=== PATIENT | male | born 2000 | race Caucasian/White ===

== ENCOUNTER 2020-06-06 03:54 | Emergency (ER) | payer BC, OTHER ==
[~2020-06-06] VITALS: Ht 175 cm; Wt 73.0 kg
[~2020-06-06 03:54] MED LIST: MONT5TAB11 PO
[2020-06-06] MEDS ORDERED: NS IV 1000 ML 1,000 ML IV SCH (04:15)
--- NOTE | 2020-06-06 04:19 | ED Psychosocial ---
General Chief Complaint: Substance Abuse Stated Complaint: INTOXICATION / CONFUSION Nursing Triage Note: brought in by family with altered mental status, aggression, etoh ingestion. Source: family Exam Limitations: intoxication (JOANN PEACOCK MD) History of Present Illness Date Seen by Provider: Jun 06, 2020 Time Seen by Provider: 04:00 Initial Comments Patient is a 19-year-old male who presents to the emergency department today with a chief complaint of altered mental status. He arrives by private vehicle. Mom reports the story is that he went to a [place] this evening and was drinking lots of alcohol. Friends called Johnny's girlfriend around 1 or 1:30 am who then contacted his mom. He was taken home and was watched for about an hour, mom became concerned because he did not seem to be "coming around". Reportedly he was quite combative at home. He has a history of type 1 diabetes. He wears an insulin pump. On arrival to the emergency department his pump is reading his blood sugar is 77. No reported traumas, mom states that it was reported to her that hemight have fallen but he did not hit his head. He has no other significant past medical history. For me he is not verbal. He responds to noxious stimuli. He does seem to be able to answer his mother a little bit with head nods. Review of systems limited secondary to the patient's intoxicated state. Timing/Duration: this evening Severity: severe Associated Symptoms: ingestion (JOANN PEACOCK MD) Allergies and Home Medications Allergies Coded Allergies: azithromycin (Verified Allergy, Unknown, 06/06/20) Home Medications Montelukast Sodium 5 Mg Tab.chew, 5 MG PO DAILY, (Reported) Patient Home Medication List Home Medication List Reviewed: Yes (JOANN PEACOCK MD) Review of Systems ROS-Unable to Obtain: patient highly intoxicated Constitutional: see HPI (JOANN PEACOCK MD) Past Wajkyzi-Jhnzjq-Xvjwzi Hx Patient Social History Alcohol Use: Occasionally Uses Smoking Status: Unknown if Ever Smoked 2nd Hand Smoke Exposure: No Recent Infectious Disease Expo: No Recent Hopitalizations: No (JOANN PEACOCK MD) Immunizations Up To Date Tetanus Booster (TDap): Less than 5yrs Date of Influenza Vaccine: Feb 15, 2012 (JOANN PEACOCK MD) Seasonal Allergies Seasonal Allergies: No (JOANN PEACOCK MD) Past Medical History Surgeries: No Respiratory: Yes Asthma Cardiac: No Neurological: No Reproductive Disorders: No Sexually Transmitted Disease: No HIV/AIDS: No Genitourinary: No Gastrointestinal: No Musculoskeletal: No Endocrine: Yes Diabetes, Insulin dep HEENT: No Cancer: No Psychosocial: No Integumentary: No Blood Disorders: No Adverse Reaction/Blood Tranf: No (JOANN PEACOCK MD) Family Medical History No Pertinent Family Hx (JOANN PEACOCK MD) Physical Exam Vital Signs - First Documented 06/06/20 03:55 Temp 36.5 Pulse 71 Resp 18 B/P (MAP) 99/63 (75) Pulse Ox 97 O2 Delivery Room Air (JUSTYNA BEAN MD) Capillary Refill : Less Than 3 Seconds (JOANN PEACOCK MD) Height, Weight, BMI Height: '" Weight: 88lbs. oz. 39.056657cx; 23.00 BMI Method:Stated General Appearance: WD/WN, no apparent distress HEENT: PERRL/EOMI (PERRL - ) Neck: other (Cervical collar placed on arrival) Respiratory: lungs clear, normal breath sounds, no respiratory distress, no accessory muscle use Cardiovascular: regular rate, rhythm, no murmur Gastrointestinal: soft Extremities: normal range of motion, normal inspection, no pedal edema, normal capillary refill Neurologic/Psychiatric: disoriented x 3 Behavior/Eye Contact: uncooperative Thoughts/Hallucinations: incoherent Skin: normal color, warm/dry (JOANN PEACOCK MD) Progress/Results/Core Measures Results/Orders Lab Results Laboratory Tests Test 06/06/20 03:59 06/06/20 04:13 Range/Units Glucometer 77 70-110 MG/DL White Blood Count 5.6 4.3-11.0 10^3/uL Red Blood Count 5.33 4.30-5.52 10^6/uL Hemoglobin 16.0 13.3-17.7 g/dL Hematocrit 44 40-54 % Mean Corpuscular Volume 83 80-99 fL Mean Corpuscular Hemoglobin 30 25-34 pg Mean Corpuscular Hemoglobin Concent 36 32-36 g/dL Red Cell Distribution Width 11.7 10.0-14.5 % Platelet Count 335 130-400 10^3/uL Mean Platelet Volume 10.2 9.0-12.2 fL Immature Granulocyte % (Auto) 0 % Neutrophils (%) (Auto) 46 42-75 % Lymphocytes (%) (Auto) 46 H 12-44 % Monocytes (%) (Auto) 6 0-12 % Eosinophils (%) (Auto) 0 0-10 % Basophils (%) (Auto) 1 0-10 % Neutrophils # (Auto) 2.6 1.8-7.8 10^3/uL Lymphocytes # (Auto) 2.6 1.0-4.0 10^3/uL Monocytes # (Auto) 0.3 0.0-1.0 10^3/uL Eosinophils # (Auto) 0.0 0.0-0.3 10^3/uL Basophils # (Auto) 0.1 0.0-0.1 10^3/uL Immature Granulocyte # (Auto) 0.0 0.0-0.1 10^3/uL Sodium Level 143 135-145 MMOL/L Potassium Level 4.0 3.6-5.0 MMOL/L Chloride Level 107 98-107 MMOL/L Carbon Dioxide Level 23 21-32 MMOL/L Anion Gap 13 5-14 MMOL/L Blood Urea Nitrogen 7 7-18 MG/DL Creatinine 0.80 0.60-1.30 MG/DL Estimat Glomerular Filtration Rate > 60 BUN/Creatinine Ratio 9 Glucose Level 104 70-105 MG/DL Calcium Level 8.8 8.5-10.1 MG/DL Urine Opiates Screen NEGATIVE NEGATIVE Urine Oxycodone Screen NEGATIVE NEGATIVE Urine Methadone Screen NEGATIVE NEGATIVE Urine Propoxyphene Screen NEGATIVE NEGATIVE Urine Barbiturates Screen NEGATIVE NEGATIVE Ur Tricyclic Antidepressants Screen NEGATIVE NEGATIVE Urine Phencyclidine Screen NEGATIVE NEGATIVE Urine Amphetamines Screen NEGATIVE NEGATIVE Urine Methamphetamines Screen NEGATIVE NEGATIVE Urine Benzodiazepines Screen NEGATIVE NEGATIVE Urine Cocaine Screen NEGATIVE NEGATIVE Urine Cannabinoids Screen NEGATIVE NEGATIVE Serum Alcohol 233 H <10 MG/DL (JUSTYNA BEAN MD) My Orders Orders - JUSTYNA BEAN MD Insulin (Regular) Human (Novolin R (Per (06/06/20 06:56) (JUSTYNA BEAN MD) Vital Signs/I&O 06/06/20 03:55 Temp 36.5 Pulse 71 Resp 18 B/P (MAP) 99/63 (75) Pulse Ox 97 O2 Delivery Room Air (JUSTYNA BEAN MD) Blood Pressure Mean: 75 Progress Progress Note : Time: 05:38 Progress Note rechecked patient, resting/sleeping soundly. Blood sugar on his insulin pump reads 143. Discussed plan of care with mom. Will let him sleep another hour or so and recheck him at 0630 and try and wake him and re-evaluate. Anticipate him sobering up and then will remove the cervical collar. Mom is agreeable to wait. Care passed to Dr Bean at shift change (JOANN PEACOCK MD) Progress Note : Progress Note 0650: Patient still resting peacefully without distress. Mother at bedside. CT is negative. Patient remains in c-collar. Patient does have insulin pump on that is out of insulin and it does show increasing blood sugar in the range of 270 currently. We will give 2 units of insulin IV as he has no basal rate going currently. He is still not waking up well. He is moving extremities and mother states that he is starting to come around. We will continue to watch him. 0750: Patient is waking up better now and did open his eyes and answer simple questions for me. Mother is a nurse and she is comfortable taking him home. Blood sugar now at about 200 and she will continue to monitor his blood sugars at home. She feels comfortable taking him home and has my phone number if needed. C-collar removed and patient has full range of motion without pain. Discharged home with return precautions. Patient mother verbalized understanding of instructions and agreement with plan. (JUSTYNA BEAN MD) Diagnostic Imaging Diagonstic Imaging: CT Plain Films/CT/US/NM/MRI: c-spine, head Comments STATRAD non contrast brain CT shows no acute intracranial abnormality; Cervical spine shows no acute osseous traumatic injury (JOANN PEACOCK MD) Comments [facility] [place], [place] NAME: JOHNNY SMYTH Reina MED REC#: [id number] PT STATUS: REG ER : 2000 PHYSICIAN: JOANN PEACOCK MD ADMIT DATE: 06/06/20/ER Draft Date of Exam:06/06/20 CT HEAD/CERVICAL SPINE WO PROCEDURE: CT head and CT cervical spine without contrast. TECHNIQUE: Multiple contiguous axial images were obtained through the brain and cervical spine without the use of intravenous contrast. Sagittal and coronal reformations through the cervical spine were then performed. Auto Exposure Controls were utilized during the CT exam to meet ALARA standards for radiation dose reduction. DATE: June 06, 2020. COMPARISON: CT head and cervical spine May 18, 2012. INDICATION: 19-year-old male, altered mental status. Head and neck pain. FINDINGS: The ventricles and cerebral spinal fluid spaces are of normal size and configuration for the patient's age. There is no mass effect or midline shift. There is no acute intracranial hemorrhage. There is no abnormal extra-axial fluid collection. The visualized portions of the paranasal sinuses, mastoid air cells and middle ears are well aerated. There is no identified facet joint subluxation or dislocation. There is no asymmetric widening of the cervical disc spaces. There is no identified acute fracture of the cervical spine. The cervical disc heights are well preserved. The facet joints are unremarkable. CT is limited for assessment of disc pathology as well as additional nonbony causes of pathology in the spinal canal. The visualized portions of the lung apices are clear. IMPRESSION: 1. No identified acute intracranial abnormality. 2. No identified acute abnormality of the cervical spine. Dictated on workstation # [id number] Dict: 06/06/20620 Trans: 06/06/2035 [facility] [id number] Interpreted by: KRISTI LOPEZ MD Electronically signed by: (JUSTYNA BEAN MD) Departure Impression Primary Impression: Acute alcoholic intoxication Qualified Codes: F10.929 - Alcohol use, unspecified with intoxication, unspecified Disposition: 01 HOME, SELF-CARE Condition: Stable Departure-Patient Inst. Referrals: SHARLENE GAITAN MD (PCP) Primary Care Physician Patient Instructions: ALCOHOL AND SUBSTANCE ABUSE, Alcohol Intoxication ED Add. Discharge Instructions: All discharge instructions reviewed with patient and/or family. Voiced understanding. You should avoid alcohol especially as a diabetic. Resume normal diet as tolerated. Carefully monitor your blood sugar and treat or adjust as needed per your home protocol. Return for worse pain, fever, vomiting, weakness, breathing problems or other concerns as needed. JOANN PEACOCK MD Jun 06, 2020 04:19 JUSTYNA BEAN MD Jun 06, 2020 07:57
[2020-06-06 04:20] LABS: BASOPHILS # (AUTO) 0.1 10^3/uL (0.0-0.1); BASOPHILS % (AUTO) 1 % (0-10); EOSINOPHILS % (AUTO) 0 % (0-10); HEMATOCRIT 44 % (40-54); LYMPHOCYTES # (AUTO) 2.6 10^3/uL (1.0-4.0); LYMPHOCYTES % (AUTO) 46 % (12-44); MEAN CORPUSCULAR HEMOGLOBIN 30 pg (25-34); MEAN CORPUSCULAR HGB CONC 36 g/dL (32-36); MEAN CORPUSCULAR VOLUME 83 fL (80-99); MEAN PLATELET VOLUME 10.2 fL (9.0-12.2); MONOCYTES # (AUTO) 0.3 10^3/uL (0.0-1.0); MONOCYTES % (AUTO) 6 % (0-12); NEUTROPHILS # (AUTO) 2.6 10^3/uL (1.8-7.8); NEUTROPHILS % (AUTO) 46 % (42-75); PLATELET COUNT 335 10^3/uL (130-400); WHITE BLOOD COUNT 5.6 10^3/uL (4.3-11.0)
[2020-06-06 04:29] LABS: CHLORIDE 107 MMOL/L (98-107); SODIUM 143 MMOL/L (135-145)
[2020-06-06 04:31] LABS: CALCIUM 8.8 MG/DL (8.5-10.1); GLUCOSE 104 MG/DL (70-105)
[2020-06-06 04:32] LABS: CARBON DIOXIDE 23 MMOL/L (21-32)
[2020-06-06 04:35] LABS: GFR ESTIMATED > 60
[2020-06-06 04:36] LABS: AMPHETAMINE SCREEN, URINE NEGATIVE (NEGATIVE); BARBITURATE SCREEN URINE NEGATIVE (NEGATIVE); BENZODIAZEPINES SCREEN URINE NEGATIVE (NEGATIVE); BUN/CREATININE RATIO 9; CANNABINOID SCREEN, URINE NEGATIVE (NEGATIVE); COCAINE SCREEN URINE NEGATIVE (NEGATIVE); METHADONE STAT NEGATIVE (NEGATIVE); METHAMPHETAMINE SCREEN URINE S NEGATIVE (NEGATIVE); OPIATE SCREEN URINE NEGATIVE (NEGATIVE); OXYCODONE STAT NEGATIVE (NEGATIVE); PROPOXYPHENE STAT NEGATIVE (NEGATIVE); TRICYCLIC ANTIDEPRESSANTS SCRE NEGATIVE (NEGATIVE)
--- NOTE | 2020-06-06 06:37 | Diagnostic Imaging Report ---
PROCEDURE: CT head and CT cervical spine without contrast. TECHNIQUE: Multiple contiguous axial images were obtained through the brain and cervical spine without the use of intravenous contrast. Sagittal and coronal reformations through the cervical spine were then performed. Auto Exposure Controls were utilized during the CT exam to meet ALARA standards for radiation dose reduction. DATE: June 06, 2020. COMPARISON: CT head and cervical spine May 18, 2012. INDICATION: 19-year-old male, altered mental status. Head and neck pain. FINDINGS: The ventricles and cerebral spinal fluid spaces are of normal size and configuration for the patient's age. There is no mass effect or midline shift. There is no acute intracranial hemorrhage. There is no abnormal extra-axial fluid collection. The visualized portions of the paranasal sinuses, mastoid air cells and middle ears are well aerated. There is no identified facet joint subluxation or dislocation. There is no asymmetric widening of the cervical disc spaces. There is no identified acute fracture of the cervical spine. The cervical disc heights are well preserved. The facet joints are unremarkable. CT is limited for assessment of disc pathology as well as additional nonbony causes of pathology in the spinal canal. The visualized portions of the lung apices are clear. IMPRESSION: 1. No identified acute intracranial abnormality. 2. No identified acute abnormality of the cervical spine. Dictated by: Dictated on workstation # [id number]
[2020-06-06] MEDS ORDERED: inSUlin (REGULAR) HUMAN 1 UNIT/0.01 ML (CHARGE PER UNIT) IV STA (06:56)
[2020-06-06 08:07] VITALS: BP 97/68
== END 2020-06-06 08:07 | disposition home or self-care (01) ==
LOC: EDUNIT# 03:54 → ER 03:56
DX: F10.129 Alcohol abuse with intoxication, unspecified (principal); J45.909 Unspecified asthma, uncomplicated; Z88.1 Allergy status to other antibiotic agents
CPT/HCPCS: 70450; 72125; 80048; 80306; 82962; 85025; G0480; 36415; 80320

== ENCOUNTER 2021-04-15 23:12 | Inpatient (IN) | payer OTHER, BC ==
[~2021-04-15] VITALS: Ht 172.7 cm; Wt 63.5 kg
[2021-04-15] MEDS ORDERED: LACTATED RINGERS 1,000 ML IV STA (23:26)
[2021-04-15] MEDS ORDERED: ONDANSETRON 4 MG/2 ML (SDV) Z0FRAN IVP ONE (23:30)
[2021-04-15 23:45] LABS: BASOPHILS # (AUTO) 0.1 10^3/uL (0.0-0.1); BASOPHILS % (AUTO) 0 % (0-10); EOSINOPHILS % (AUTO) 0 % (0-10); HEMATOCRIT 44 % (40-54); LYMPHOCYTES # (AUTO) 2.4 10^3/uL (1.0-4.0); LYMPHOCYTES % (AUTO) 21 % (12-44); MEAN CORPUSCULAR HEMOGLOBIN 30 pg (25-34); MEAN CORPUSCULAR HGB CONC 36 g/dL (32-36); MEAN CORPUSCULAR VOLUME 84 fL (80-99); MEAN PLATELET VOLUME 10.5 fL (9.0-12.2); MONOCYTES # (AUTO) 0.8 10^3/uL (0.0-1.0); MONOCYTES % (AUTO) 7 % (0-12); NEUTROPHILS # (AUTO) 8.3 10^3/uL (1.8-7.8); NEUTROPHILS % (AUTO) 71 % (42-75); PLATELET COUNT 317 10^3/uL (130-400); WHITE BLOOD COUNT 11.6 10^3/uL (4.3-11.0)
[2021-04-15 23:46] LABS: BILIRUBIN,URINE NEGATIVE (NEGATIVE); CLARITY,URINE CLEAR; COLOR,URINE YELLOW; GLUCOSE, URINE (UA) NEGATIVE (NEGATIVE); KETONES,URINE NEGATIVE (NEGATIVE); LEUKOCYTE ESTERASE ,URINE NEGATIVE (NEGATIVE); NITRITE,URINE NEGATIVE (NEGATIVE); PROTEIN,URINE NEGATIVE (NEGATIVE)
[2021-04-15 23:53] LABS: BACTERIA,URINE NEGATIVE /HPF
[2021-04-15 23:57] LABS: ALBUMIN 4.7 GM/DL (3.2-4.5); CHLORIDE 100 MMOL/L (98-107); POTASSIUM 3.7 MMOL/L (3.6-5.0); SODIUM 140 MMOL/L (135-145)
[2021-04-15 23:59] LABS: CALCIUM 9.7 MG/DL (8.5-10.1)
[2021-04-16] VITALS (9 sets, daily range): BP systolic 109–121; BP diastolic 56–83
[2021-04-16] LABS: GLUCOSE 105 MG/DL (70-105); TOTAL PROTEIN 7.8 GM/DL (6.4-8.2)
[2021-04-16 00:01] LABS: CARBON DIOXIDE 27 MMOL/L (21-32)
[2021-04-16 00:02] LABS: BILIRUBIN,TOTAL 0.6 MG/DL (0.1-1.0)
[2021-04-16 00:03] LABS: ALKALINE PHOSPHATASE 68 U/L (40-136); PHOSPHORUS 2.2 MG/DL (2.3-4.7)
[2021-04-16 00:04] LABS: CREATININE SERUM 0.86 MG/DL (0.60-1.30); GFR ESTIMATED 112
[2021-04-16 00:05] LABS: BUN/CREATININE RATIO 8
[2021-04-16] MEDS ORDERED: fentaNYL INJ 100 MCG/2 ML AMP IVP STA (00:05)
[2021-04-16] MEDS ORDERED: KETOROLAC 30 MG/ML VIAL IVP STA (00:05)
[2021-04-16 00:07] LABS: ALANINE AMINOTRANSFERASE 14 U/L (0-55); MAGNESIUM 1.7 MG/DL (1.6-2.4)
--- NOTE | 2021-04-16 00:11 | ED Abdominal Pain ---
General Chief Complaint: COVID19 Suspect/Confirmed Stated Complaint: VOMITING,ABD PAIN,POSS FEVER,COVID + Source of Information: Patient Exam Limitations: No Limitations History of Present Illness Date Seen by Provider: Apr 15, 2021 Time Seen by Provider: 23:32 Initial Comments Here with report of right lower quadrant abdominal pain that started about 6 PM after eating a hamburger. He had vomiting after that and then a few hours later the pain became worse to the right lower quadrant. Current illness is complicated by being Covid positive. He has 2 more days in isolation. Illness started last week with positive test from [facility] 3 days ago. Does have type 1 diabetes for 10 years but states his blood sugars have been good and he has been able to manage that well throughout the illness. Blood sugar low 100s currently on his pump/meter. Denies blood in his urine or stool. Denies difficulty with urination. Has not had anything for pain. States pain was worse on the car ride here over any bumps and also worse with walking. Timing/Duration: 4-6 Hours Severity/Quality: Moderate, Severe Location: RLQ Radiation: No Radiation Activities at Onset: None Modifying Factors: Worsens With Eating, Worsens With Movement, Worsens With Palpation Associated Symptoms: No Back Pain, No Chest Pain; Fever/Chills, Nause a/Vomiting; No Shortness of Air, No Swelling/Mass in Abdomen, No Weakness Allergies and Home Medications Allergies Coded Allergies: azithromycin (Verified Allergy, Unknown, 06/06/20) Patient Home Medication List Home Medication List Reviewed: Yes Montelukast Sodium (Singulair) 5 Mg Tab.chew, 5 MG PO DAILY, (Reported) Entered as Reported by: MEETA MOHAMUD on 12/07/09 1873 Review of Systems Review of Systems Constitutional: see HPI; No chills; fever EENTM: Nose Congestion; No Throat Pain Respiratory: Denies Cough, Denies Shortness of Air Cardiovascular: Denies Chest Pain, Denies Edema Gastrointestinal: Abdominal Pain; Denies Diarrhea; Nausea, Vomiting Genitourinary: No Symptoms Reported Musculoskeletal: no symptoms reported Skin: no symptoms reported All Other Systems Reviewed Negative Unless Noted: Yes Past Arbzkyl-Oyigkq-Pkzawp Hx Patient Social History Tobacco Use?: Yes Smoking Status: Current Everyday Smoker Use of E-Cig and/or Vaping dev: Yes E-Cig or Vaping type used: Nicotine Substance use?: No Alcohol Use?: Yes Alcohol Frequency: Once in a while Immunizations Up To Date Tetanus Booster (TDap): Less than 5yrs Seasonal Allergies Seasonal Allergies: No Past Medical History Surgery/Hospitalization HX: TYPE 1 DM Surgeries: No Respiratory: Yes Asthma Cardiac: No Neurological: No Reproductive Disorders: No Sexually Transmitted Disease: No HIV/AIDS: No Genitourinary: No Gastrointestinal: No Musculoskeletal: No Endocrine: Yes Diabetes, Insulin dep HEENT: No Cancer: No Psychosocial: No Integumentary: No Blood Disorders: No Adverse Reaction/Blood Tranf: No Family Medical History Reviewed Nursing Family Hx No Pertinent Family Hx Physical Exam Vital Signs Vital Signs - First Documented 04/15/21 23:21 Temp 37.5 Pulse 80 Resp 16 B/P (MAP) 140/85 (103) Pulse Ox 100 O2 Delivery Room Air Capillary Refill : Height/Weight/BMI Height: '" Weight: 88lbs. oz. 39.175891lj; 23.00 BMI Method:Stated General Appearance: WD/WN, no apparent distress Neck: full range of motion, supple Respiratory: lungs clear, normal breath sounds Cardiovascular: regular rate, rhythm, no murmur Gastrointestinal: soft, guarding; No rebound; tenderness (Right lower quadrant) Extremities: non-tender, normal inspection Back: normal inspection, no CVA tenderness, no vertebral tenderness Neurologic/Psychiatric: alert, oriented x 3 Skin: normal color, warm/dry Progress/Results/Core Measures Results/Orders Lab Results Laboratory Tests Test 04/15/21 23:30 Range/Units White Blood Count 11.6 H 4.3-11.0 10^3/uL Red Blood Count 5.27 4.30-5.52 10^6/uL Hemoglobin 16.0 13.3-17.7 g/dL Hematocrit 44 40-54 % Mean Corpuscular Volume 84 80-99 fL Mean Corpuscular Hemoglobin 30 25-34 pg Mean Corpuscular Hemoglobin Concent 36 32-36 g/dL Red Cell Distribution Width 11.7 10.0-14.5 % Platelet Count 317 130-400 10^3/uL Mean Platelet Volume 10.5 9.0-12.2 fL Immature Granulocyte % (Auto) 0 % Neutrophils (%) (Auto) 71 42-75 % Lymphocytes (%) (Auto) 21 12-44 % Monocytes (%) (Auto) 7 0-12 % Eosinophils (%) (Auto) 0 0-10 % Basophils (%) (Auto) 0 0-10 % Neutrophils # (Auto) 8.3 H 1.8-7.8 10^3/uL Lymphocytes # (Auto) 2.4 1.0-4.0 10^3/uL Monocytes # (Auto) 0.8 0.0-1.0 10^3/uL Eosinophils # (Auto) 0.0 0.0-0.3 10^3/uL Basophils # (Auto) 0.1 0.0-0.1 10^3/uL Immature Granulocyte # (Auto) 0.0 0.0-0.1 10^3/uL Urine Color YELLOW Urine Clarity CLEAR Urine pH 8.0 5-9 Urine Specific [place] 1.015 L 1.016-1.022 Urine Protein NEGATIVE NEGATIVE Urine Glucose (UA) NEGATIVE NEGATIVE Urine Ketones NEGATIVE NEGATIVE Urine Nitrite NEGATIVE NEGATIVE Urine Bilirubin NEGATIVE NEGATIVE Urine Urobilinogen 0.2 < = 1.0 MG/DL Urine Leukocyte Esterase NEGATIVE NEGATIVE Urine RBC (Auto) NEGATIVE NEGATIVE Urine RBC NONE /HPF Urine WBC NONE /HPF Urine Crystals NONE /LPF Urine Bacteria NEGATIVE /HPF Urine Casts NONE /LPF Urine Mucus NEGATIVE /LPF Urine Culture Indicated NO Sodium Level 140 135-145 MMOL/L Potassium Level 3.7 3.6-5.0 MMOL/L Chloride Level 100 98-107 MMOL/L Carbon Dioxide Level 27 21-32 MMOL/L Anion Gap 13 5-14 MMOL/L Blood Urea Nitrogen 7 7-18 MG/DL Creatinine 0.86 0.60-1.30 MG/DL Estimat Glomerular Filtration Rate 112 BUN/Creatinine Ratio 8 Glucose Level 105 70-105 MG/DL Calcium Level 9.7 8.5-10.1 MG/DL Corrected Calcium 8.5-10.1 MG/DL Phosphorus Level 2.2 L 2.3-4.7 MG/DL Magnesium Level 1.7 1.6-2.4 MG/DL Total Bilirubin 0.6 0.1-1.0 MG/DL Aspartate Amino Transf (AST/SGOT) 19 5-34 U/L Alanine Aminotransferase (ALT/SGPT) 14 0-55 U/L Alkaline Phosphatase 68 40-136 U/L C-Reactive Protein High Sensitivity 0.43 0.00-0.50 MG/DL Total Protein 7.8 6.4-8.2 GM/DL Albumin 4.7 H 3.2-4.5 GM/DL My Orders Orders - JUSTYNA BEAN MD Cbc With Automated Diff (04/15/21:) Comprehensive Metabolic Panel (04/15/21:) Hs C Reactive Protein (04/15/21:) Magnesium (04/15/21:) Ua Culture If Indicated (04/15/21) Phosphorus (04/15/21:) Ondansetron Injection (Zofran Injectio (04/15/21 23:30) Lactated Ringers (Lr 1000 Ml Iv Solution (04/15/21:) Ed Iv/Invasive Line Start (04/15/21:) Fentanyl Inj (Sublimaze Injection) (04/16/21 00:05) Ketorolac Injection (Toradol Injection) (04/16/21 00:05) Ct Abd/Pelv W (Appendicitis) (04/16/21 00:12) Medications Given in ED Current Medications Medications Dose Ordered Sig/Dori Route Start Time Stop Time Status Last Admin Dose Admin Ondansetron HCl 4 mg ONCE ONCE IVP 04/15/21 23:30 04/15/21 23:31 DC 04/15/21 23:35 4 MG Vital Signs/I&O 04/15/21:21 Temp 37.5 Pulse 80 Resp 16 B/P (MAP) 140/85 (103) Pulse Ox 100 O2 Delivery Room Air Progress Progress Note : Progress Note Seen and evaluated. IV, labs, UA, LR 1 L bolus, Zofran 4 mg IV. Patient with pain. Fentanyl 25 mcg IV ordered and Toradol 30 mg IV ordered. Last meal was at 6:30 PM last night. Monitor patient. Anticipate CT scan. 0110: CT scan complete the read pending. Clearly shows appendicitis with appendicolith and associated fat stranding. I did discuss the case with Dr. Gauthier. We will give Rocephin 1 g IV now and admit with surgery likely after 10 AM this morning. This was discussed with the patient who agrees. We will let him continue with his insulin pump and he is well managed. He will adjust his basal rate down since he will be n.p.o. He is currently pain-free. Admit observation status. Patient agrees to plan. Diagnostic Imaging Diagonstic Imaging: CT Plain Films/CT/US/NM/MRI: abdomen, pelvis Comments Acute appendicitis Statrad read at 0229 shows acute appendicitis. Reviewed: Reviewed [place] Study, Reviewed by Me Departure Communication (Admissions) Time/Spoke to Admitting Phy: 01:10 Impression Primary Impression: Acute appendicitis Qualified Codes: K35.30 - Acute appendicitis with localized peritonitis, without perforation or gangrene Additional Impression: COVID-19 virus infection Disposition: ADMITTED INPATIENT Condition: Stable Admissions Decision to Admit Reason: Admit from ER (General) Decision to Admit/Date: Apr 16, 2021 Time/Decision to Admit Time: 01:10 Departure-Patient Inst. Referrals: MACKENZIE WEISS MD (PCP/Family) Primary Care Physician JUSTYNA BEAN MD Apr 16, 2021 00:11
[2021-04-16] MEDS ORDERED: cefTRIAXone 1 GM PRE-MIX 50 ML IV STA (01:12)
[2021-04-16] MEDS ORDERED: CATHETER FLUSH 10 ML SYR IV PRN (01:30)
[2021-04-16] MEDS ORDERED: IOHEXOL 350 MG/ML 150 ML (OMNIPAQUE 350) VIAL IV ONE (01:30)
[2021-04-16] MEDS ORDERED: HOLD METFORMIN - RECEIVED CONTRAST 20 ML VIAL IV SCH (01:30)
[2021-04-16] MEDS ORDERED: NS 100 ML (IVPB) BAG IV ONE (01:30)
[2021-04-16] MEDS ORDERED: LACTATED RINGERS 1,000 ML IV ONE (03:26)
[2021-04-16] MEDS ORDERED: ONDANSETRON 4 MG/2 ML (SDV) Z0FRAN IV PRN (03:30)
[2021-04-16] MEDS: LACTATED RINGERS 1,000 ML IV SCH ×2 (03:32→13:23)
--- NOTE | 2021-04-16 04:36 | Diagnostic Imaging Report ---
PROCEDURE: CT abdomen and pelvis with contrast, rule out appendicitis. TECHNIQUE: Multiple contiguous axial images were obtained through the abdomen and pelvis after the administration of intravenous contrast. All CT scans use one or more of the following dose optimizing techniques: automated exposure control, MA and/or KvP adjustment based on patient size and exam type or iterative reconstruction. INDICATION: Right lower quadrant abdominal pain and vomiting. Covid positive. COMPARISON: None FINDINGS: There is minimal atelectasis in the left lung base. The heart is normal in size. The liver demonstrates no focal lesions. The spleen appears normal. The pancreas is normal. The adrenal glands appear normal. There is a small subcentimeter cyst in the superior left kidney. The kidneys are otherwise unremarkable. The bowel loops are nondistended without evidence of obstruction. The appendix is enlarged, measuring 1.3 cm in diameter, with a calcified appendicolith measuring 5 mm. There is surrounding edema and fluid. No free air is seen. No rim-enhancing fluid collection is seen. No acute osseous abnormality is identified. IMPRESSION: 1. Acute appendicitis with appendicolith. There is surrounding fluid and edema, but no abscess or free air is seen. No significant changes from the preliminary report. Dictated by: Dictated on workstation # [id number]
[2021-04-16] MEDS ORDERED: LIDOCAINE/EPI 1%-1:200,000 (XYLOCAINE) 30 ML VIAL ONE (09:26)
[2021-04-16] MEDS ORDERED: ONDANSETRON 4 MG/2 ML (SDV) Z0FRAN ONE ×2 (10:02→10:12)
[2021-04-16] MEDS ORDERED: LIDOCAINE PF 2% 5 ML (XYLOCAINE) VIAL ONE (10:02)
[2021-04-16] MEDS ORDERED: fentaNYL INJ 100 MCG/2 ML AMP ONE (10:02)
[2021-04-16] MEDS ORDERED: proPOfol 200 MG/20 ML (DIPRIVAN) VIAL IV ONE (10:02)
[2021-04-16] MEDS ORDERED: ROCURONIUM 10 MG/ML 5 ML SYRINGE IV ONE (10:02)
[2021-04-16] MEDS ORDERED: MIDAZOLAM 2 MG/2 ML (VERSED) VIAL ONE (10:02)
[2021-04-16] MEDS ORDERED: MEPERIDINE (DEMEROL) INJ 50 MG/ML ONE (10:12)
[2021-04-16] MEDS ORDERED: PROMETHAZINE INJ 25 MG/ML (PHENERGAN) AMP ONE (10:12)
[2021-04-16] MEDS ORDERED: morphine INJ 10 MG/ML 1ML (SYR OR VIAL) ONE (10:12)
[2021-04-16] MEDS ORDERED: ceFAZolin INJECTION 2,000 MG ONE (10:43)
--- NOTE | 2021-04-16 10:48 | Consultation - Surgery ---
History of Present Illness History of Present Illness Patient Consulted On(howard/time) 04/16/21 10:40 Time Seen by Provider: 10:31 History of Present Illness Surgery asked to consult regarding appendicitis. HPI per ED: Here with report of right lower quadrant abdominal pain that started about 6 PM after eating a hamburger. He had vomiting after that and then a few hours later the pain became worse to the right lower quadrant. Current illness is complicated by being Covid positive. He has 2 more days in isolation. Illness started last week with positive test from [facility] 3 days ago. Does have type 1 diabetes for 10 years but states his blood sugars have been good and he has been able to manage that well throughout the illness. Blood sugar low 100s currently on his pump/meter. Denies blood in his urine or stool. Denies difficulty with urination. Has not had anything for pain. States pain was worse on the car ride here over any bumps and also worse with walking. Timing/Duration: 4-6 Hours Severity/Quality: Moderate, Severe Location: RLQ Radiation: No Radiation Activities at Onset: None Modifying Factors: Worsens With Eating, Worsens With Movement, Worsens With Palpation Associated Symptoms: No Back Pain, No Chest Pain; Fever/Chills, Nausea/Vomiting; No Shortness of Air, No Swelling/Mass in Abdomen, No Weakness When I spoke to pt this morning he stated pain was a 5 out of 10 and worse with movement. At its worst it was a 10. He did vomit last night and had chills but didn't take a temp. He said he had no Covid symptoms, just tested positive. Allergies and Home Medications Allergies Coded Allergies: azithromycin (Verified Allergy, Unknown, 06/06/20) Patient Home Medication List Home Medication List Reviewed: Yes (Insulin pump) Montelukast Sodium (Singulair) 5 Mg Tab.chew, 5 MG PO DAILY, (Reported) Entered as Reported by: MEETA MOHAMUD on 12/07/09 0408 Past Qmoncrb-Chqdkc-Reorvd Hx Patient Social History Smoking Status: Never a Smoker 2nd Hand Smoke Exposure: No Recent Hopitalizations: No Alcohol Use?: Yes Immunizations Up To Date Tetanus Booster (TDap): Less than 5yrs Date of Influenza Vaccine: Feb 15, 2012 Seasonal Allergies Seasonal Allergies: No Surgeries History of Surgeries: No Respiratory History of Respiratory Disorde: Yes Respiratory Disorders: Asthma Cardiovascular History of Cardiac Disorders: No Neurological History of Neurological Disord: No Reproductive System Hx Reproductive Disorders: No Sexually Transmitted Disease: No HIV/AIDS: No Genitourinary History of Genitourinary Disor: No Gastrointestinal History of Gastrointestinal Di: No Musculoskeletal History of Musculoskeletal Dis: No Endocrine History of Endocrine Disorders: Yes Endocrine Disorders: Diabetes, Insulin dep HEENT History of HEENT Disorders: No Cancer History of Cancer: No Psychosocial History of Psychiatric Problem: No Integumentary History of Skin or Integumenta: No Blood Transfusions History of Blood Disorders: No Adverse Reaction to a Blood Tr: No Family Medical History Significant Family History: Diabetes (denied either parent had DM) Review of Systems-General Constitutional: chills, malaise, weakness EENTM: No blurred vision, No double vision, No mouth pain, No mouth swelling, No epistaxis Respiratory: No cough, No dyspnea on exertion, No hemoptysis Cardiovascular: No chest pain, No palpitations Gastrointestinal: abdominal pain (RLQ); No hematemesis, No jaundice; loss of appetite, nausea, vomiting Genitourinary: No dysuria, No frequency, No hematuria Musculoskeletal: No joint pain, No joint swelling, No muscle pain Skin: No change in color, No change in hair/nails Psychiatric/Neurological: Denies Anxiety, Denies Seizure, Denies Tremors Physical Exam-General Problems Physical Exam Vital Signs Vital Signs - First Documented 04/15/21 23:21 Temp 37.5 Pulse 80 Resp 16 B/P (MAP) 140/85 (103) Pulse Ox 100 O2 Delivery Room Air Capillary Refill : Less Than 3 Seconds General Appearance: WD/WN, mild distress Eyes: Bilateral Eye PERRL, Bilateral Eye Abnormal EOM HEENT: pharynx normal; No scleral icterus (R), No scleral icterus (L) Neck: non-tender, supple Respiratory: chest non-tender, lungs clear, normal breath sounds, no respiratory distress, no accessory muscle use Cardiovascular: regular rate, rhythm, no murmur Gastrointestinal: soft, no organomegaly, tenderness (RLQ mostly but mild diffuse) Back: no CVA tenderness, no vertebral tenderness Extremities: normal range of motion, no pedal edema, no calf tenderness Neurologic/Psychiatric: sas programmer II-XII nml as tested, alert, normal mood/affect, oriented x 3 Skin: normal color, warm/dry Lymphatic: no adenopathy (neck, axilla or groin) Data Review Labs Laboratory Tests 04/15/21 23:30: White Blood Count 11.6H, Red Blood Count 5.27, Hemoglobin 16.0, Hematocrit 44, Mean Corpuscular Volume 84, Mean Corpuscular Hemoglobin 30, Mean Corpuscular Hemoglobin Concent 36, Red Cell Distribution Width 11.7, Platelet Count 317, Mean Platelet Volume 10.5, Immature Granulocyte % (Auto) 0, Neutrophils (%) (Auto) 71, Lymphocytes (%) (Auto) 21, Monocytes (%) (Auto) 7, Eosinophils (%) (Auto) 0, Basophils (%) (Auto) 0, Neutrophils # (Auto) 8.3H, Lymphocytes # (Auto) 2.4, Monocytes # (Auto) 0.8, Eosinophils # (Auto) 0.0, Basophils # (Auto) 0.1, Immature Granulocyte # (Auto) 0.0, Urine Color YELLOW, Urine Clarity CLEAR, Urine pH 8.0, Urine Specific [place] 1.015L, Urine Protein NEGATIVE, Urine Glucose (UA) NEGATIVE, Urine Ketones NEGATIVE, Urine Nitrite NEGATIVE, Urine Bilirubin NEGATIVE, Urine Urobilinogen 0.2, Urine Leukocyte Esterase NEGATIVE, Urine RBC (Auto) NEGATIVE, Urine RBC NONE, Urine WBC NONE, Urine Crystals NONE, Urine Bacteria NEGATIVE, Urine Casts NONE, Urine Mucus NEGATIVE, Urine Culture Indicated NO, Sodium Level 140, Potassium Level 3.7, Chloride Level 100, Carbon Dioxide Level 27, Anion Gap 13, Blood Urea Nitrogen 7, Creatinine 0.86, Estimat Glomerular Filtration Rate 112, BUN/Creatinine Ratio 8, Glucose Level 105, Calcium Level 9.7, Corrected Calcium , Phosphorus Level 2.2L, Magnesium Level 1.7, Total Bilirubin 0.6, Aspartate Amino Transf (AST/SGOT) 19, Alanine Aminotransferase (ALT/SGPT) 14, Alkaline Phosphatase 68, C-Reactive Protein High Sensitivity 0.43, Total Protein 7.8, Albumin 4.7H Radiology Date of Exam:04/16/21 CT ABD/PELV W (APPENDICITIS) PROCEDURE: CT abdomen and pelvis with contrast, rule out appendicitis. TECHNIQUE: Multiple contiguous axial images were obtained through the abdomen and pelvis after the administration of intravenous contrast. All CT scans use one or more of the following dose optimizing techniques: automated exposure control, MA and/or KvP adjustment based on patient size and exam type or iterative reconstruction. INDICATION: Right lower quadrant abdominal pain and vomiting. Covid positive. COMPARISON: None FINDINGS: There is minimal atelectasis in the left lung base. The heart is normal in size. The liver demonstrates no focal lesions. The spleen appears normal. The pancreas is normal. The adrenal glands appear normal. There is a small subcentimeter cyst in the superior left kidney. The kidneys are otherwise unremarkable. The bowel loops are nondistended without evidence of obstruction. The appendix is enlarged, measuring 1.3 cm in diameter, with a calcified appendicolith measuring 5 mm. There is surrounding edema and fluid. No free air is seen. No rim-enhancing fluid collection is seen. No acute osseous abnormality is identified. IMPRESSION: 1. Acute appendicitis with appendicolith. There is surrounding fluid and edema, but no abscess or free air is seen. No significant changes from the preliminary report. Dictated by: Dictated on workstation # [id number] Dict: 04/16/21 0424 Trans: 04/16/21 0705 [facility] [id number] Interpreted by: STEVE BOCANEGRA MD Electronically signed by: STEVE BOCANEGRA MD 04/16/21 0705 Assessment/Plan Assessment/Plan Assessment/Plan Acute Appendicitis Pt was admitted, given IV ABX, pain meds and anti-emetics as needed, he was started on IV fluids and continued to use his insulin pump. I talked to him about Laparscopic Appendectomy, possible open and that depending on how bad it looked in there he most likely could go home today. I will get consent signed and still give him another dose of ABX prior to OR. All questions answered to his satisfaction. I did review the CT myself. BRAN BYRD DO Apr 16, 2021 10:48
[2021-04-16] MEDS: LACTATED RINGERS 1,000 ML IV PRN ×2 (11:15→11:56)
[2021-04-16] MEDS ORDERED: PROMETHAZINE INJ 25 MG/ML (PHENERGAN) AMP IVP ONE (11:30)
[2021-04-16] MEDS ORDERED: MEPERIDINE (DEMEROL) INJ 50 MG/ML IVP ONE (11:30)
[2021-04-16] MEDS ORDERED: morphine INJ 10 MG/ML 1ML (SYR OR VIAL) IVP ONE (11:30)
[2021-04-16] MEDS ORDERED: ONDANSETRON 4 MG/2 ML (SDV) Z0FRAN IVP PRN (11:30)
[2021-04-16] MEDS ORDERED: SEVOFLURANE (ULTANE) 15 ML INHAL SOLN ONE (11:34)
[2021-04-16] MEDS ORDERED: ACHD5005 PO (12:33)
--- NOTE | 2021-04-16 12:35 | Discharge Inst-Surgical ---
Discharge Inst-Surgical Depart Medication/Instructions New, Converted or Re-Newed RX: Transmitted to Pharmacy Patient Instructions Follow up Appt: Make appointment for 1 week. [phone] Instructions: No lifting greater than 20 pounds. No strenuous activity. May shower in 24 hours, no tub bath or soaking. Use incentive spirometer at home as directed. No Smoking Skin/Wound Care: May remove bandages in am. You need to leave the Dermabond on incision it will fall off on it's own. Symptoms to Report: Appetite Changes, Extremity Discoloration, Numbness/Tingling, Swelling Increased, Bleeding Excessive, Eyesight Changes, Pain Increased, Urine Color Change, Constipation(Persistent), Fever over 101 degree F, Pain/Pressure in chest, Urinating Difficulty, Cough Up/Vomit Blood, Heart Beat Irreg/Pounding, Pain/Pressure in jaw, Cramps in feet or legs, Lightheadedness, Pain/Pressure in shoulder, Diarrhea(Persistent), Memory Changes Suddenly, Questions/Concerns, Weight gain consecutive days, Dizziness/Fainting, Nausea/Vomiting, Shortness of Breath, Weight gain over 2 pounds If questions or concerns contact your physician Or seek help at emergency department. Activity Activity as Tolerated: Yes Activity Instructions: Avoid Stress to Incision Driving Instructions: No Driving/Refer to Dr. Rendon Discharge Diet: No Restrictions Diet After 24 Hours: Clear Liquid if Nauseous If Any Problems/Questions/Issu: Contact Your Physician, Go to Emergency Room Skin/Wound Care Infection Signs and Symptoms: Increased Redness, Foul Odor of Wound, Increased Drainage, Skin Itchy or Has a Rash, Increased Swelling, Temperature Above 101 F Wound Care Comment: heating pad to shoulder or neck tonight for pain Bathing Instructions: Shower Stitches/[place]/Dermabond Dis: Dermabond Ice Pack: Ice On and Off Site BRAN BYRD DO Apr 16, 2021 12:35
--- NOTE | 2021-04-16 12:47 | Progress Note-Post Operative ---
Post-Operative Progess Note Surgeon (s)/Bonding Molder (s) Surgeon BRAN BYRD DO Bonding Molder: none Pre-Operative Diagnosis acute appy Post-Operative Diagnosis same plus peritoneal mass Procedure & Operative Findings Date of Procedure 04/16/21 Procedure Performed/Findings PROCEDURE: Laparoscopic appendectomy and removal of peritoneal mass COMPLICATIONS: None. INDICATIONS: The patient is a 20 year old male who has been having right lower quadrant abdominal pain. Patient's exam consistent with appendicitis. I discussed risk and benefits of laparoscopic appendectomy and all indicated procedures with the possibility being a normal appendix. The patient understands the risks and benefits and wishes to proceed. Consent was signed on the chart. DESCRIPTION OF PROCEDURE: The patient was taken to the operating suite, prepped and draped in a sterile fashion. Timeout was performed. Local anesthetic was infiltrated just above the umbilicus and 11-blade scalpel was used to make a skin incision. Cautery was used to dissect down to the fascia and scored. Kochers were used to grasp and elevate it and the abdomen was then entered. A 0 Vicryl was placed in a [id number] fashion for closure at the end of the case. The balloon trocar was inserted into the abdomen and pneumoperitoneum was achieved. Under direct visualization of the laparoscope, a 5 mm trocar was placed in the suprapubic region and a 5 mm trocar was placed in the left lower quadrant. Appendix was difficult to locate because it was very retrocecal. There was no purulence or free fluid in the abdomen, it was just edema surrounding the appendix all contained in the mesentery. Used the Ligasure, grasper and suction jewelry appraiser to bluntly and sharply start dissecting out the appendix. First had to go along the right para-colic gutter with Ligasure to free up this area; still couldn't see appendix. Identified the TI and Cecum, made sure to stay away from them. Went through edema and tissue between Cecum and appendix. Finally able to get it free, had come across mesoappendix with the Ligasure taking it down and the appendiceal artery. Had a hard time visualizing the base of the appendix, it looked very large. Made sure I was away from the TI and elected to use the Endo-TERRI 2.5 stapler and then fired across the base of the appendix. I wound up taking a little bit of the Cecum, but only 0.5cm. The appendix was completely folded up on itself and the tip was touching the base; which was why it was so hard to find the base. It was then placed in an Endobag and removed through the 12 mm trocar site. The abdomen was then irrigated and suctioned. I saw what looked like serous mass on the peritoneum and removed it by grasping and biopsying; passed off the table on telfa and sent to pathology. The staple line looked good and was well away from the TI. The abdomen was then desufflated and the trocars were removed. The 0 Vicryl placed at the beginning of the case was then tied closing the 12 mm fascial defect. The skin was then closed using 4-0 Monocryl in a subcuticular fashion. The abdomen was then washed and dried and Skin Affix was placed over the incisions. The patient tolerated the procedure well without any complications and was taken to the recovery room in stable condition. Anesthesia Type GET Estimated Blood Loss Estimated blood loss (mL): scant Specimens/Packing Specimens Removed appendix peritoneal mass BRAN BYRD DO Apr 16, 2021 12:47
[2021-04-16] MEDS: fentaNYL INJ 100 MCG/2 ML AMP IV PRN ×2 (13:32→16:35)
[2021-04-16] MEDS ORDERED: inSUlin ASPART (NovoLOG) 1 UNIT/0.01 ML (CHARGE PER UNIT) SC ONE (14:00)
[2021-04-16] MEDS ORDERED: inSUlin ASPART (NovoLOG) 1 UNIT/0.01 ML (CHARGE PER UNIT) ONE (14:08)
--- NOTE | 2021-04-18 12:23 | Anesthesia-General Post-Op ---
General Patient Condition Mental Status/LOC: Same as Preop Cardiovascular: Satisfactory Nausea/Vomiting: Absent Respiratory: Satisfactory Pain: Controlled Complications: Absent Post Op Complications Complications None Follow Up Care/Instructions Patient Instructions None needed. Anesthesia/Patient Condition Patient Condition Patient is doing well, no complaints, stable vital signs, no apparent adverse anesthesia problems. No complications reported per nursing. ANNABELLE RAYO CRNA Apr 18, 2021 12:23
== END 2021-04-16 17:45 | disposition home or self-care (01) | DRG 341 ==
LOC: EDUNIT# 23:12 → ER 23:15 → EDLOC 04-16 01:10 → 4TH 04-16 01:10
PROVIDERS: ADMIT Surgery; ATTEND Surgery
PROC: 0DBW4ZZ Excision of Peritoneum, Percutaneous Endoscopic Approach (ICD-10-PCS; 2021-04-16)
PROC: 0DTJ4ZZ Resection of Appendix, Percutaneous Endoscopic Approach (ICD-10-PCS; principal; 2021-04-16 10:49)
DX: K35.80 Unspecified acute appendicitis (principal); U07.1 COVID-19; F17.210 Nicotine dependence, cigarettes, uncomplicated; J45.909 Unspecified asthma, uncomplicated; E11.9 Type 2 diabetes mellitus without complications; Z79.4 Long term (current) use of insulin; K66.8 Other specified disorders of peritoneum
CPT/HCPCS: 36415; 74177; 80053; 81000; 82947; 83735; 84100; 85025; 86141; 87081